=== PATIENT | female | born 2000 | race Caucasian/White ===

== ENCOUNTER 2024-07-22 22:14 | Emergency (ER) | payer OTHER, SELFPAY ==
[2024-07-22 22:18] VITALS: BP 142/90; PULSE 105; TEMP 36.6; O2SAT 97; BMI 44.4
--- NOTE | 2024-07-22 22:35 | ED_ITS ---
HPI HPI - General Adult General Chief complaint: Back Pain/Injury Stated complaint: ABDOMINAL AND BACK PAIN, NAUSEOUS Time Seen by Provider: 07/22/24 22:31 Source: patient Mode of arrival: walk-in Limitations: no limitations History of Present Illness HPI narrative: patient presents complaining of acute onset of RUQ pain that started about 1/2 hour ago. States started after she bent over. Pain radiates around toward her back and associated with nausea. Pain has improved now but not resolved completely no diarrhea and not short of breath. no fever. Denies similar pain Related Data Allergies Allergy/AdvReac Type Severity Reaction Status Date / Time amoxicillin Allergy Rash Verified 07/22/24 22:24 Penicillins Allergy Rash Verified 07/22/24 22:24 Opioid HPI Opioid Management Most Recent Opioid Data: Last Pain Scale 5 07/22/24, 23:38 Review of Systems ROS Status of ROS 10 or more systems reviewed and unremark able except as noted in history and below PFSH PFSH Social History Little interest or pleasure in doing things: not at all Feeling down, depressed, or hopeless: not at all Exam Constitutional Vital Signs, click to edit/add: Last Vital Signs Temp 98 F 07/22/24 22:18 Pulse 105 H 07/22/24 22:18 Resp 20 07/22/24 22:18 BP 142/90 H 07/22/24 22:18 Pulse Ox 97 07/22/24 22:18 O2 Del Method Room Air 07/22/24 22:18 Common normals: no apparent distress, average body habitus, oriented x3, no limitations, healthy appearing, alert and well nourished [facility] Common normals: normocephalic and head/scalp atraumatic Eye Common normals: PERRL and EOMs intact bilaterally Respiratory Common normals: normal respiratory effort, no retractions, no use of accessory muscles and clear to auscultation bilaterally Cardio Common normals: regular rate, regular rhythm, S1 normal heart sound and S2 n ormal heart sound GI Other: RUQ tenderness. no guarding Extremity Common normals: normal to inspection and full ROM Neuro Common normals: oriented x3, CN's II-XII intact bilaterally, moves all extremities and no focal motor deficits Psych Appearance: grossly normal Course Vital Signs Vital signs: Vital Signs Temperature 98 F 07/22/24 22:18 Pulse Rate 105 H 07/22/24 22:18 Respiratory Rate 20 07/22/24 22:18 Blood Pressure 142/90 H 07/22/24 22:18 Pulse Oximetry 97 07/22/24 22:18 Oxygen Delivery Method Room Air 07/22/24 22:18 Temperature 98 F 07/22/24 22:18 Pulse Rate 105 H 07/22/24 22:18 Respiratory Rate 20 07/22/24 22:18 Blood Pressure 142/90 H 07/22/24 22:18 Pulse Oximetry 97 07/22/24 22:18 Oxygen Delivery Method Room Air 07/22/24 22:18 Medical Decision Making MDM Narrative Medical decision making narrative: presents complaining of pain RUQ. Atypical history. states she bent over and the pain started. Mild tenderness on exam. labs WNL and sp gravity 1030. CT with finding of enteritis and mesenteric adenitis. Patient feeling better. Informed of diagnosis and discharged home in stable condition Lab Data Labs: Lab Results 07/22/24 07/22/24 Range/Units 23:00 23:14 WBC 10.6 (4.0-11.0) 10^3/uL RBC 4.41 (4.20-5.40) 10^6/uL Hgb 13.1 (12.0-16.0) g/dL Hct 37.4 (36.0-48.0) % MCV 84.8 (81.0-99.0) fL MCH 29.7 (26.7-34.0) pg MCHC 35.0 (29.9-35.2) g/dL RDW 13.2 (11.0-15.0) % Plt Count 355 (150-450) 10^3/uL MPV 10.0 (9.5-13.5) fL Neut % (Auto) 54.4 (43.0-75.0) % Lymph % (Auto) 35.8 (20.5-60.0) % [place] % (Auto) 5.7 (1.7-12.0) % Eos % (Auto) 3.3 (0.9-7.0) % Baso % (Auto) 0.5 (0.2-2.0) % Neut # (Auto) 5.8 (1.4-6.5) 10^3/uL Lymph # (Auto) 3.8 (1.2-3.8) 10^3/uL [place] # (Auto) 0.6 (0.3-0.8) 10^3/uL Eos # (Auto) 0.4 (0.0-0.7) 10^3/uL Baso # (Auto) 0.1 (0.0-0.1) 10^3/uL Abs Immat Gran (auto) 0.03 (0.00-0.03) 10^3/uL Imm/Tot Granulo (auto) 0.3 (0.0-0.5) % Sodium 142 (136-145) mmol/L Potassium 3.6 (3.5-5.1) mmol/L Chloride 105 (98-107) mmol/L Carbon Dioxide 26.2 (21.0-32.0) mmol/L Anion Gap 14.4 BUN 13.0 (7.0-18.0) mg/dL Creatinine 0.98 (0.55-1.02) mg/dL Est GFR ( Amer) >60 (>=60 mL/min/1.73m^2) Est GFR (Non-Af Amer) >60 (>=60 mL/min/1.73m^2) BUN/Creatinine Ratio 13.3 Glucose 107 H (74-106) mg/dL Lactate 1.4 (0.4-2.0) mmol/L Calcium 9.2 (8.5-10.1) mg/dL Total Bilirubin 0.5 (0.2-1.0) mg/dL AST 13 L (15-37) U/L ALT 23 (14-59) U/L Alkaline Phosphatase 104 (46-116) U/L Total Protein 7.5 (6.4-8.2) g/dL Albumin 3.7 (3.4-5.0) g/dL Globulin 3.8 g/dL Albumin/Globulin Ratio 1.0 Lipase 27.0 (16.0-77.0) U/L Urine Color Yellow (YELLOW) Urine Clarity Clear (CLEAR) Urine pH 5.5 (5.0-9.0) Ur Specific [place] >=1.030 A (1.005-1.025) Urine Protein Negative (NEG/TRACE) mg/dL Urine Glucose (UA) Negative (NEGATIVE) mg/dL Urine Ketones Trace A (NEGATIVE) mg/dL Urine Occult Blood Trace-i (NEGATIVE) Urine Nitrite Negative (NEGATIVE) Urine Bilirubin Negative (NEGATIVE) Urine Urobilinogen 1.0 (0.2-1.0) EU/dL Ur Leukocyte Esterase Negative (NEGATIVE) Urine RBC 0-2 (0-2) #/HPF Urine WBC 2-5 A (NONE SEEN) #/HPF Ur Squamous Epith Cells Many A (NONE/RARE) #/LPF Urine Crystals None seen (None Seen) #/HPF Urine Bacteria Small A (NONE SEEN) #/HPF Urine Casts None seen (NONE SEEN) #/LPF Urine Mucus Large A (NONE SEEN) Ur Culture Indicated? Yes-[facility] [place] Urine HCG, Qual Negative (NEGATIVE) Discharge Plan Discharge Chief Complaint: Back Pain/Injury Clinical Impression: Acute mesenteric adenitis, Enteritis Patient Disposition: Home, Self-Care Print Language: Indonesian Instructions: Adenitis (ED), Enteritis (ED) Referrals: KELLY PERES [Primary Care Provider, Internal Medicine] - 1 week
[2024-07-22 23:40] LABS: Bilirubin Urine NEGATIVE (NEGATIVE); Blood Urine TRACE-I (NEGATIVE); Clarity Urine CLEAR (CLEAR); Color Urine YELLOW (YELLOW); Glucose Urine UA NEGATIVE (NEGATIVE); Ketones Urine TRACE mg/dL (NEGATIVE); Leukocyte Esterase Urine NEGATIVE (NEGATIVE); Nitrite Urine NEGATIVE (NEGATIVE); Protein Urine NEGATIVE (NEG/TRACE); Specific Gravity Urine >=1.030 (1.005-1.025); pH Urine 5.5 (5.0-9.0)
[2024-07-22 23:42] LABS: Basophils Absolute Auto 0.1 10^3/uL (0.0-0.1); Basophils Percent Auto 0.5 % (0.2-2.0); Eosinophils Absolute Auto 0.4 10^3/uL (0.0-0.7); Eosinophils Percent Auto 3.3 % (0.9-7.0); Hematocrit 37.4 % (36.0-48.0); Hemoglobin 13.1 g/dL (12.0-16.0); Immature Granulocytes Abs Auto 0.03 10^3/uL (0.00-0.03); Immature Granulocytes Pct Auto 0.3 % (0.0-0.5); Lymphocytes Absolute Auto 3.8 10^3/uL (1.2-3.8); Lymphocytes Percent Auto 35.8 % (20.5-60.0); Mean Corpuscular Hemoglobin 29.7 pg (26.7-34.0); Mean Corpuscular Volume 84.8 fL (81.0-99.0); Monocytes Absolute Auto 0.6 10^3/uL (0.3-0.8); Monocytes Percent Auto 5.7 % (1.7-12.0); Neutrophils Absolute Auto 5.8 10^3/uL (1.4-6.5); Neutrophils Percent Auto 54.4 % (43.0-75.0); Platelet Count 355 10^3/uL (150-450); Red Blood Count 4.41 10^6/uL (4.20-5.40); Red Cell Distribution Width 13.2 % (11.0-15.0); White Blood Count 10.6 10^3/uL (4.0-11.0)
[2024-07-22 23:50] LABS: Bacteria Urine SMALL #/HPF (NONE SEEN); Crystals Seen? None Seen #/HPF (None Seen); Mucus Urine LARGE (NONE SEEN); RBC Urine 0-2 #/HPF (0-2); Squamous Epithelial Cell Urine MANY #/LPF (NONE/RARE)
[2024-07-22 23:51] LABS: Cast Seen? NONE SEEN #/LPF (NONE SEEN); HCG Qualitative Urine* NEGATIVE (NEGATIVE); Internal Control Within Normal Limits; Urine Culture Indicated YES-FRMC
[2024-07-22 23:59] LABS: Alanine Aminotransferase 23 U/L (14-59); Albumin Level 3.7 g/dL (3.4-5.0); Alkaline Phosphatase 104 U/L (46-116); Anion Gap 14.4; Aspartate Amino Transferase 13 U/L (15-37); BUN Creatinine Ratio 13.3; Bilirubin Total 0.5 mg/dL (0.2-1.0); Calcium 9.2 mg/dL (8.5-10.1); Carbon Dioxide 26.2 mmol/L (21.0-32.0); Chloride 105 mmol/L (98-107); Estimated GFR (African America >60 (>=60 mL/min/1.73m^2); Estimated GFR (Non-African Ame >60 (>=60 mL/min/1.73m^2); Globulin 3.8 g/dL; Glucose 107 mg/dL (74-106); Potassium 3.6 mmol/L (3.5-5.1); Sodium 142 mmol/L (136-145); Total Protein 7.5 g/dL (6.4-8.2)
[2024-07-23 00:05] LABS: Lactate/Lactic Acid 1.4 mmol/L (0.4-2.0)
[2024-07-23] MEDS: KETOROLAC TROMETHAMINE 30 MG/ML VIAL IVP (01:05)
[2024-07-23] MEDS: ONDANSETRON PF 4 MG/2 ML VIAL IV (01:05)
[2024-07-23 04:21] VITALS: BP 138/76; PULSE 82; O2SAT 98
== END 2024-07-23 04:27 | disposition home or self-care (01) ==
PROVIDERS: Emergency Provider Internal Medicine; PCP Internal Medicine
DX: I88.0 Nonspecific mesenteric lymphadenitis (principal); K52.9 Noninfective gastroenteritis and colitis, unspecified
CPT/HCPCS: 36415; 71045; 74177; 80053; 81001; 83605; 83690; 84703; 85025; 87086; 96374; 96375; 99285; J1885; J2405; Q9967